=== PATIENT | female | born 2000 | race Caucasian/White ===

== ENCOUNTER 2021-10-14 02:28 | Emergency (ER) | payer SELFPAY ==
[~2021-10-14] VITALS: Ht 162.6 cm; Wt 111.6 kg
[2021-10-14 02:32] VITALS: BP 155/108
--- NOTE | 2021-10-14 02:32 | NUR ---
PT W/C ASSISTED TO ER BED 1
--- NOTE | 2021-10-14 02:54 | NUR ---
RECEIVED IN BED 1 WITH C/O LEFT FACIAL NUMBNESS FOR 1 DAY. C/O LEFT ARM NUMBNESS AND WEAKNESS. PT STARTED TAKING BUSPAR 2 DAYS AGO PMHx: Anxiety Disorder
[2021-10-14 03:17] LABS: BASOPHILS % (AUTO) 0.5 % (0.0-2.0); EOSINOPHILS % (AUTO) 0.4 % (0.0-4.0); HEMATOCRIT 41.7 % (36-52); LYMPHOCYTES # (AUTO) 2.5 K/uL (2.0-11.5); MEAN CORPUSCULAR HEMOGLOBIN 29 pg (27-31); MEAN CORPUSCULAR HGB CONC 34 g/dL (33-37); MEAN CORPUSCULAR VOLUME 85.5 fL (80-94); MONOCYTES # (AUTO) 0.6 K/uL (0.8-1.0); MONOCYTES % (AUTO) 7.4 % (1.7-9.3); NEUTROPHILS # (AUTO) 4.7 K/uL (1.8-7.7); NEUTROPHILS % (AUTO) 59.7 % (42.2-75.2); PLATELET COUNT (AUTO) 287 K/uL (140-450); RED BLOOD CELL COUNT(AUTO) 4.88 MIL/uL (4.20-6.10); RED CELL DISTRIBUTION WIDTH 14.2 % (11.6-13.7); WHITE BLOOD COUNT (AUTO) 7.9 K/uL (4.8-10.8)
[2021-10-14 03:27] LABS: ANION GAP 13.4 (8-16); CARBON DIOXIDE 26.2 mmol/L (21-32); POTASSIUM 3.6 mmol/L (3.5-5.1)
--- NOTE | 2021-10-14 04:00 | NUR ---
AMBULATED TO BR, UA OBTAINED AND SENT TO LAB
[2021-10-14] MEDS ORDERED: LORazepam 1 MG TAB PO ONE (04:25)
[2021-10-14] MEDS ORDERED: ACETAMINOPHEN EXTRA STRENGTH 500 MG TAB PO ONE (04:25)
[2021-10-14 04:33] LABS: BARBITURATE, URINE NEGATIVE ng/ml (NEG <=200); BENZODIAZEPINE, URINE NEGATIVE ng/mL (NEG <=200); CANNABINOID, URINE NEGATIVE ng/mL (NEG <=50); COCAINE, URINE NEGATIVE ng/mL (NEG <=300); OPIATE, URINE NEGATIVE ng/mL (NEG <=2000); PHENCYCLIDINE SCREEN,URINE NEGATIVE ng/mL (NEG <=25)
[2021-10-14] MEDS ORDERED: NAPR-54 PO (05:12)
[2021-10-14 05:25] VITALS: BP 136/84
== END 2021-10-14 05:25 | disposition home or self-care (01) ==
LOC: EDSEX 02:28 → MED 02:28
DX: R51.9 Headache, unspecified (principal); R20.2 Paresthesia of skin; F41.9 Anxiety disorder, unspecified; Z79.899 Other long term (current) drug therapy
CPT/HCPCS: 36415; 70450; 80048; 80305; 85025; 93005; 99285

== ENCOUNTER 2021-11-18 16:28 | Emergency (ER) | payer OTHER ==
[~2021-11-18] VITALS: Ht 162.6 cm; Wt 108.9 kg
[~2021-11-18 16:28] MED LIST: NAPR-54 PO
[2021-11-18 16:36] VITALS: BP 130/84
--- NOTE | 2021-11-18 16:36 | NUR ---
Patient BIBA taken to bed 9
--- NOTE | 2021-11-18 17:16 | NUR ---
21 y/o F BIBA from home c/o chest pain since 330PM s/p eating 0.25mg edible at 2PM. Patient A&Ox4, ambulatory, states first time taking edibles; began experiencing left sided chest pain, 6/10, throbbing/constant, radiating down left arm. Patient states lightheadedness, dizziness, headache, nausea. Patient denies vomiting, blurry vision, SOB, cough. Denies medications prior to arrival. monitoring manager in place. Bed locked in lowest position, side rails x 1. PMH: HLD, anxiety, ADHD Meds: testosterone NKDA
--- NOTE | 2021-11-18 17:33 | NUR ---
Urine sample to CPT Felicia at ER bedside
--- NOTE | 2021-11-18 17:35 | NUR ---
Dr. Pedroza evaluating pt at bedside
[2021-11-18] MEDS ORDERED: ACETAMINOPHEN EXTRA STRENGTH 500 MG TAB PO ONE (17:45)
--- NOTE | 2021-11-18 17:57 | NUR ---
Lab at bedside
[2021-11-18 18:11] LABS: BASOPHILS % (AUTO) 0.5 % (0.0-2.0); EOSINOPHILS % (AUTO) 0.2 % (0.0-4.0); HEMATOCRIT 43.4 % (36-48); LYMPHOCYTES # (AUTO) 1.8 K/uL (2.5-16.5); LYMPHOCYTES % (AUTO) 19.2 % (20.5-51.1); MEAN CORPUSCULAR HEMOGLOBIN 30 pg (27-31); MEAN CORPUSCULAR HGB CONC 35 g/dL (33-37); MEAN CORPUSCULAR VOLUME 85.8 fL (80-94); MONOCYTES # (AUTO) 0.5 K/uL (0.8-1.0); MONOCYTES % (AUTO) 5.6 % (1.7-9.3); NEUTROPHILS # (AUTO) 7.1 K/uL (1.8-7.7); NEUTROPHILS % (AUTO) 74.5 % (42.2-75.2); PLATELET COUNT (AUTO) 289 K/uL (140-450); RED BLOOD CELL COUNT(AUTO) 5.06 MIL/uL (4.20-5.40); RED CELL DISTRIBUTION WIDTH 14.3 % (11.6-13.7); WHITE BLOOD COUNT (AUTO) 9.6 K/uL (4.8-10.8)
--- NOTE | 2021-11-18 18:23 | NUR ---
+ relief to chest pain; 510 at this time. night monitor remains in place. Bed locked in lowest position, side rails x 1. [place] provided per pt request.
[2021-11-18 18:27] LABS: BARBITURATE, URINE NEGATIVE ng/ml (NEG <=200); BENZODIAZEPINE, URINE NEGATIVE ng/mL (NEG <=200); CANNABINOID, URINE NEGATIVE ng/mL (NEG <=50); COCAINE, URINE NEGATIVE ng/mL (NEG <=300); OPIATE, URINE NEGATIVE ng/mL (NEG <=2000); PHENCYCLIDINE SCREEN,URINE NEGATIVE ng/mL (NEG <=25)
[2021-11-18 18:42] LABS: ALBUMIN 3.9 g/dL (3.4-5.0); ANION GAP 11.5 (8-16); ASPARTATE AMINOTRANSFERASE 21 U/L (15-37); CARBON DIOXIDE 26.6 mmol/L (21-32); CHLORIDE 105 mmol/L (98-107); CREATININE 0.8 mg/dL (0.6-1.3); GFR ARICAN-AMERICAN 116 mL/min (>90); GLUCOSE 108 mg/dL (74-106); POTASSIUM 4.1 mmol/L (3.5-5.1); SODIUM SERUM 139 mmol/L (136-145); TOTAL BILIRUBIN 0.7 mg/dL (0.0-1.0); UREA NITROGEN, BLOOD 8 mg/dL (7-18)
--- NOTE | 2021-11-18 19:18 | NUR ---
Report and transfer of care endorsed to BEHZAD Vera.
--- NOTE | 2021-11-18 19:18 | NUR ---
ASSUME CARE OF PT, REPORT GIVEN BY AUGUSTIN RN, PT C/O CP AND DIZZINESS AFTER EATING ETIBLES FOR THE FIRST TIME TODAY. 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 STATES CP HAS REDUCE AND HAS LESS DIZZINESS.
[2021-11-18] MEDS ORDERED: ONDA-188 PO (19:39)
[2021-11-18] MEDS ORDERED: NAPR-54 PO (19:39)
--- NOTE | 2021-11-18 20:45 | NUR ---
SECOND TROPONIN SENT TO LAB.
[2021-11-18 21:48] VITALS: BP 124/70
--- NOTE | 2021-11-18 21:48 | NUR ---
Patient discharged with v/s stable. Written and verbal after care instructions given and explained. Patient alert, oriented and verbalized understanding of instructions. Ambulatory with steady gait. All questions addressed prior to discharge. ID band removed. Patient advised to follow up with PMD. Rx SENT TO PHARMACY. Patient educated on indication of medication including possible reaction and side effects. Opportunity to ask questions provided and answered.
== END 2021-11-18 21:48 | disposition home or self-care (01) ==
LOC: MED 16:28
DX: R07.89 Other chest pain (principal); R94.31 Abnormal electrocardiogram [ECG] [EKG]; F41.9 Anxiety disorder, unspecified; F17.210 Nicotine dependence, cigarettes, uncomplicated; F12.10 Cannabis abuse, uncomplicated
CPT/HCPCS: 36415; 71045; 80053; 80305; 81025; 84484; 85025; 85379; 93005; 99285; Q0092